=== PATIENT | female | born 1960 | race Caucasian/White ===

== ENCOUNTER → 2019-05-23 17:37 | Outpatient (CLI) | payer OTHER, SELFPAY ==
--- NOTE | ~2019-05-23 | MM_ITS ---
EXAMINATION: MM screening mary BI w ellen HISTORY: Screening mammogram, history of right breast cancer TECHNIQUE: Craniocaudal and mediolateral oblique 3-D tomosynthesis images were obtained and synthetic 2-D images were generated. CAD analysis was submitted and interpreted. COMPARISON: 09/04/2011, 03/11/2011, 03/06/2011, 02/20/2010 BREAST PARENCHYMAL COMPOSITION: The breasts are heterogeneously dense, which may obscure small masses . FINDINGS: There is architectural distortion in the middle third of the upper right breast at the site of prior lumpectomy. Surgical clips are also noted in the right axilla. There is no evidence of susp icious mass, calcification, or architectural distortion to suggest malignancy in either breast. There has been no suspicious interval change. IMPRESSION: 1. No mammographic evidence of malignancy. 2. Recommend routine screening mammography in one year. BI-RADS Category 2: Benign finding(s). Reviewed, dictated and finalized at location A. CTOR OF LABORATORY OPERATIONS
== END ==
PROVIDERS: PCP Family Medicine; Visit Provider Obstetrics & Gynecology
DX: Z12.31 Encounter for screening mammogram for malignant neoplasm of breast (principal)
CPT/HCPCS: 77063; 77067

== ENCOUNTER 2020-07-24 07:42 | Outpatient (CLI) | payer OTHER, SELFPAY ==
--- NOTE | ~2020-07-24 | MM_ITS ---
EXAMINATION: MM screening [facility] BI w ellen HISTORY: Screening mammogram TECHNIQUE: Craniocaudal and mediolateral oblique 3-D tomosynthesis images were obtained and synthetic 2-D images were generated. CAD analysis was submitted and interpreted. COMPARISON: 05/23/2019, 04/26/2018, 04/16/2017 BREAST PARENCHYMAL COMPOSITION: The breasts are heterogeneously dense, which may obscure small masses . FINDINGS: There is stable architectural distortion in the upper right breast related to prior lumpect nora. Clips are also noted in the right axilla. There is no evidence of suspicious mass, calcification , or architectural distortion to suggest malignancy in either breast. There has been no suspicious in terval change. IMPRESSION: 1. No mammographic evidence of malignancy. 2. Recommend routine screening mammography in one year. BI-RADS Category 2: Benign finding(s). Reviewed, dictated and finalized at location A.
== END 2020-07-24 07:43 | disposition home or self-care (01) ==
LOC: ANHIMG 07:47
PROVIDERS: PCP Family Medicine; Visit Provider Obstetrics & Gynecology
DX: Z12.31 Encounter for screening mammogram for malignant neoplasm of breast (principal)
CPT/HCPCS: 77063; 77067

== ENCOUNTER 2021-08-08 08:16 | Outpatient (CLI) | payer OTHER, SELFPAY ==
--- NOTE | ~2021-08-08 | MM_ITS ---
EXAMINATION: MM screening mary BI w ellen HISTORY: Screening mammogram TECHNIQUE: Craniocaudal and mediolateral oblique 3-D tomosynthesis images were obtained and synthetic 2-D images were generated. CAD analysis was submitted and interpreted. COMPARISON: 07/24/2020, 05/23/2019, 04/26/2018, 04/16/2017 bilateral screening mammogram examinations BREAST PARENCHYMAL COMPOSITION: The breasts are heterogeneously dense, which may obscure small masses . FINDINGS: There is stable architectural distortion in the upper mid right breast and multiple surgica l clips in the right axilla consistent postoperative change from partial mastectomy and axillary node dissection for history of right breast cancer. There is no evidence of suspicious mass, calcification, or interval architectural distortion to sugge st malignancy in either breast. There has been no suspicious interval change. IMPRESSION: 1. Status post right partial mastectomy and axillary node dissection. Stable right architectural dist ortion since 04/16/2017; no interval mammographic evidence of malignancy. 2. Recommend routine screening mammography in one year. BI-RADS Category 2: Benign finding(s). Reviewed, dictated and finalized at location A. IMPRESSION: 1. Status post right partial mastectomy and axillary node dissection. Stable ri ght architectural distortion since 04/16/2017; no interval mammographic evidence of malignancy. 2. Recommend routine screening mammography in one year. BI-RADS Category 2: Benign finding(s).
== END 2021-08-08 08:17 | disposition home or self-care (01) ==
PROVIDERS: PCP Family Medicine; Visit Provider Obstetrics & Gynecology
DX: Z12.31 Encounter for screening mammogram for malignant neoplasm of breast (principal)
CPT/HCPCS: 77063; 77067

== ENCOUNTER 2022-07-22 23:09 | Emergency (ER) | payer OTHER, SELFPAY ==
--- NOTE | ~2022-07-22 | XR_ITS ---
Clinical Indication: Back pain radiating to chest PA and lateral views of the chest: Comparison: 05/26/2005 Findings: The lungs are clear, without evidence of focal consolidation or pleural effusion. Cardiome diastinal silhouette is within normal limits. Bones and soft tissues are unremarkable. Impression: Normal chest. Reviewed, dictated and finalized at location . Impression: Normal chest.
--- NOTE | ~2022-07-22 | CT_ITS ---
Clinical Indication: Dissection CT Scan of the Chest, Abdomen, and Pelvis with Contrast: Technique: Contiguous sections were acquired throughout the chest, abdomen, and pelvis after intraven ous administration of 100 cc of Omnipaque 350. Dose reduction technique was used on this scan by keiko goodmaning automated exposure control and iterative reconstruction technique. The dose-length product (DL P) was 930.00 mGy-cm. COMPARISON: 09/17/2012 Findings: There is no evidence of any significant mediastinal, hilar or axillary lymphadenopathy. Ascending aor ta is mildly dilated to 4.4 cm. No dissection seen in the thoracic aorta. No pulmonary embolus. There is no evidence of pleural or pericardial effusion. The lungs are clear. No pulmonary nodules or infiltrates are noted. The liver, spleen, pancreas, gallbladder, adrenals and kidneys are within normal limits. No evidence of abdominal aortic aneurysm or dissection. No lymphadenopathy. No bowel obstruction or bowel wall thickening. There is no evidence to suggest acute appendicitis. Urinary bladder is unremarkable. No adnexal mass evident. No ascites. Impression: Ascending aortic aneurysm measures 4.4 cm in diameter. No aortic dissection. No other significant findings. Reviewed, dictated and finalized at [facility]. Impression: Ascending aortic aneurysm measures 4.4 cm in diameter. No aortic dissection. No other significant findings.
--- NOTE | 2022-07-23 | ECG_ITS ---
Measurements Intervals [place] Rate: 60 P: 20 [place]: 191 QRS: 11 QRSD: 103 T: 71 QT: 438 QTc: 438 Interpretive Statements SINUS RHYTHM NONSPECIFIC ST & T-WAVE ABNORMALITY NO PREVIOUS ECG AVAILABLE FOR COMPARISON Electronically Signed On 07-23-2022 15:44:23 CDT by Emma Lewis M.D.
[2022-07-23 00:05] VITALS: BP 157/96; PULSE 63; RESP 15; TEMP 36.9; O2SAT 94
--- NOTE | 2022-07-23 00:56 | ED.GENADULT ---
HPI - General Adult General Chief complaint: Back Pain/Injury Stated complaint: back pressure Time Seen by Provider: 07/23/22 00:28 History of Present Illness HPI narrative: 61-year-old female history of hypertension, GERD, presented with chest pain, back pain. Per patient approximately 5 hours prior to presentation she was eating when she began feeling right-sided chest pain, also involving her back, rating to the right neck. This did not feel like her acid reflux, so presents to the ED for further evaluation. By time of ED presentation, patient reports all symptoms resolved. She denies shortness of breath, abdominal pain, dysuria, hematuria, sick contacts, diarrhea. Past medical history: Hypertension, GERD Past surgical history: Denied Medications: Denied Allergies: No known drug allergies Social: Denied smoking, IV drugs, recreational drugs Related Data Home Medications Medication Instructions Recorded Confirmed cholecalciferol (vitamin D3) 25 25 mcg PO DAILY 08/21/21 03/18/22 mcg (1,000 unit) capsule evening primrose oil-linoleic 1 cap PO BID 08/21/21 03/18/22 acid-gamolenic acid 1,000 mg capsule omega 3,6,9 combination no.7 92 mg mg PO 08/21/21 03/18/22 (43 mg-22 [id number]) chew tablet Allergies Allergy/AdvReac Type Severity Reaction Status Date / Time No Known Allergies Allergy Mild Verified 07/23/22 02:30 Review of Systems Review of Systems: See HPI [facility] Past Medical History Medical History Diarrhea Dyslipidemia Environmental allergies Essential (primary) hypertension Family history of colon cancer in mother GERD without esophagitis History of mitral valve prolapse History of right breast cancer Inflammatory arthritis Obese JACK (obstructive sleep apnea) Surgical History Surgical History History of lumpectomy of right breast 2013 Family History Family History Other Carcinoma of colon Family history of coronary artery disease Social History Social History Smoking status: Never smoker Alcohol intake: current Alcohol use details: occasionally Substance use: never Substance use type: does not use Lack of Transportation: No Lack of Food: Never True Current Housing: I Have Housing Concerned About Future Housing: No Difficulty Paying Gas/Electric Bills: No Difficulty Paying for Meds: No Currently Unemployed: No Education: Decline to Answer Difficulty w/ Childcare or Family Care: No Living arrangements: with family Additional living arrangements comments: Occupation/Education: occupation Gender identity (if verbalized by the patient): Female Sexual Orientation (if Verbalized by the Patient): Straight or Heterosexual Agree to blood products: Yes Exam Narrative: APPEARANCE: Alert, calm and cooperative, no acute distress, phonating, sitting comfortably during visit HEAD: atraumatic EYES: Pupils equal round an reactive to light, extra ocular movements intact, no conjunctival injection NOSE: Normal no drainage NECK: Supple, without meningismus RESPIRATORY: Lungs clear to auscultation bilaterally, no wheezes/rales/rhonchi, breathing comfortably CARDIOVASCULAR: Regular rate and rhythm, no visible jugular venous distension ABDOMINAL: Soft, nontender, nondistended, no guarding, no rebound/peritoneal signs, no costovertebral tenderness to palpation BACK: no midline tenderness to palpation, no step offs EXTREMITIES: No edema, palpable peripheral pulses, warm, well perfused, no tenderness to bilateral calves. NEURO: Alert, moving all extremities symmetrically, normal finger nose finger, 5/5 strength throughtout SKIN:: Warm, dry. Normal color PSYCHIATRIC: Normal affect/mood Course Vital Signs Vital signs: Vital Signs
[2022-07-23 01:18] LABS: Basophils Absolute Auto 0.1 K/mm3 (0.0-0.1); Basophils Percent Auto 0.9 % (0.2-1.2); Eosinophils Absolute Auto 0.5 K/mm3 (0-0.3); Eosinophils Percent Auto 8.6 % (0-4.4); Hematocrit 39.4 % (37.0-47.0); Hemoglobin 13.6 g/dL (12.0-15.0); Immature Granulocyte Absolute 0.01 K/mm3 (0.00-0.031); Immature Granulocyte Percent A 0.2 % (0-0.5); Lymphocytes Absolute Auto 1.63 K/mm3 (0.9-3.2); Lymphocytes Percent Auto 29.7 % (18.3-44.2); Mean Corpuscular HGB Conc 34.5 g/dl (32-36); Mean Corpuscular Hemoglobin 31.1 pg (26-34); Mean Corpuscular Volume 90.2 fl (80-100); Mean Platelet Volume 8.9 fl (7.4-10.4); Monocytes Absolute Auto 0.5 K/mm3 (0.1-0.6); Monocytes Percent Auto 9.3 % (2.6-8.5); Neutrophils Absolute Auto 2.8 K/mm3 (1.3-6.7); Neutrophils Percent Auto 51.3 % (45.5-73.1); Platelet Count Result 233 k/mm3 (150-375); Red Blood Count 4.37 M/mm3 (4.2-5.4); Red Cell Distribution Width 12.3 % (11.5-14.5); White Blood Count 5.5 K/mm3 (4.5-10.0)
[2022-07-23 01:27] LABS: Prothrombin Time 12.4 Seconds (11.1-14.7)
[2022-07-23 01:28] LABS: Partial Thromboplastin Time 26.5 SECONDS (22.3-36.8)
[2022-07-23] MEDS: MAG HYDROX/AL HYDROX/SIMETH 30 ML UDC PO (01:29)
[2022-07-23] MEDS: FAMOTIDINE 20 MG/2 ML VIAL IV PUSH (01:29)
[2022-07-23 01:33] LABS: Alanine Aminotransferase 27 U/L (6-35); Albumin Level 4.4 g/dL (3.5-5.1); Alkaline Phosphatase 61 U/L (38-126); Anion Gap 3 mmol/L (8-16); Aspartate Amino Transferase 33 U/L (14-36); Bilirubin,Total 0.5 mg/dL (0.2-1.3); Blood Urea Nitrogen 13 mg/dL (7-17); Calcium 9.2 mg/dL (8.4-10.2); Carbon Dioxide 33 mmol/L (22-30); Chloride 99 mmol/L (98-107); Estimated CRCL calculation 86 ml/min; Estimated Glomerular Filt Rate > 60; Glucose 93 mg/dL (65-110); Lipase 128 U/L (23-300); Potassium 3.7 mmol/L (3.4-5.0); Sodium 135 mmol/L (137-145)
[2022-07-23 01:41] LABS: Troponin I < 0.012 ng/mL (0.000-0.034)
[2022-07-23 02:23] VITALS: BP 133/72; PULSE 61; RESP 14; O2SAT 95
[2022-07-23 03:51] VITALS: BP 146/92; PULSE 63; RESP 15; O2SAT 96
[2022-07-23 03:55] LABS: Lipase 121 U/L (23-300)
[2022-07-23 04:08] LABS: Troponin I < 0.012 ng/mL (0.000-0.034)
== END 2022-07-23 03:53 | disposition home or self-care (01) ==
PROVIDERS: Emergency Provider Emergency Medicine; PCP Family Medicine
DX: R07.9 Chest pain, unspecified (principal); I10 Essential (primary) hypertension; E78.5 Hyperlipidemia, unspecified; I34.1 Nonrheumatic mitral (valve) prolapse; G47.33 Obstructive sleep apnea (adult) (pediatric); K21.9 Gastro-esophageal reflux disease without esophagitis; E66.9 Obesity, unspecified; Z68.31 Body mass index [BMI] 31.0-31.9, adult; Z85.3 Personal history of malignant neoplasm of breast; R94.31 Abnormal electrocardiogram [ECG] [EKG]
CPT/HCPCS: 36415; 71046; 71275; 74174; 80053; 83690; 84484; 85025; 85610; 85730; 93005; 96374; 99284; A9270; Q9967

== ENCOUNTER 2022-08-12 09:36 | Outpatient (CLI) | payer OTHER, SELFPAY ==
--- NOTE | ~2022-08-12 | NM_ITS ---
EXAMINATION: NM hepatobiliary wo pharm DATE: 08/12/2022 14:20 CDT INDICATION: Right upper quadrant pain COMPARISON: CT dated 07/23/2022. TECHNIQUE: 4.9 mCi Tc-99m mebrofenin (Choletec) was administered intravenously. Scintigraphic images of the abdomen were obtained for one hour. At the 1 hour time point, the patient drank 8 oz Ensure, and imaging was continued for 60 minutes. Gallbladder ejection fraction was calculated by the technol ogist. FINDINGS: There is normal clearance of radiotracer from the blood pool. There is homogeneous tracer u ptake by the liver. Activity progresses to the bowel and gallbladder. The gallbladder ejection fract ion is 86%. Note that with this technique, normal GBEF >= 33%. IMPRESSION: 1. Normal hepatobiliary scan. Reviewed, dictated and finalized at location L.
== END 2022-08-12 09:37 | disposition home or self-care (01) ==
PROVIDERS: PCP Family Medicine; Visit Provider Nurse Practitioner Family
DX: R10.11 Right upper quadrant pain (principal)
CPT/HCPCS: 78226; A9537

== ENCOUNTER 2022-08-13 08:04 | Outpatient (CLI) | payer OTHER, SELFPAY ==
--- NOTE | ~2022-08-13 | US_ITS ---
Limited Abdominal Sonogram: Real-time sonographic imaging of the right upper quadrant was performed. Clinical History: Right upper quadrant pain Findings: The liver appears normal with no evidence of mass lesion or bile duct dilatation. Main por dina vein demonstrates normal direction of flow. The gallbladder is well distended, without evidence o f gallstone. Probable 4 mm gallbladder wall polyp. The common bile duct measures 4 mm. The visualize d pancreas, aorta, and IVC are unremarkable. Impression: 4 mm gallbladder wall polyp. Reviewed, dictated and finalized at location M. Impression: 4 mm gallbladder wall polyp.
== END 2022-08-13 08:05 | disposition home or self-care (01) ==
PROVIDERS: PCP Family Medicine; Visit Provider Nurse Practitioner Family
DX: R10.11 Right upper quadrant pain (principal); K82.4 Cholesterolosis of gallbladder
CPT/HCPCS: 76705

== ENCOUNTER → 2023-01-21 14:01 | Outpatient (CLI) | payer OTHER, SELFPAY ==
--- NOTE | ~2023-01-21 | MM_ITS ---
EXAMINATION: MM screening mary BI w ellen HISTORY: Screening TECHNIQUE: Craniocaudal and mediolateral oblique 3-D tomosynthesis images were obtained and synthetic 2-D images were generated. CAD analysis was submitted and interpreted. COMPARISON: Comparison to multiple prior studies sequentially, with oldest reviewed study dated 04/15. BREAST PARENCHYMAL COMPOSITION: The breasts are heterogeneously dense, which may obscure small masses . FINDINGS: Stable architectural distortion of the right breast consistent with previous lumpectomy sit e. There is no evidence of suspicious mass, calcification, or architectural distortion to suggest mal ignancy in either breast. There has been no suspicious interval change. IMPRESSION: 1. No mammographic evidence of malignancy. 2. Recommend routine screening mammography in one year. BI-RADS Category 1: Negative Reviewed, dictated and finalized at location A.
== END ==
PROVIDERS: PCP Internal Medicine Medical Oncology; Visit Provider Obstetrics & Gynecology
DX: Z12.31 Encounter for screening mammogram for malignant neoplasm of breast (principal)
CPT/HCPCS: 77063; 77067

== ENCOUNTER 2023-05-29 08:09 | Outpatient (CLI) | payer OTHER, SELFPAY ==
--- NOTE | ~2023-05-29 | US_ITS ---
EXAMINATION: US abdomen limited DATE: 05/29/2023 08:43 INDICATION: Cholesterolosis of the gallbladder TECHNIQUE: Multiple grayscale and Doppler ultrasound images of the abdomen were obtained. COMPARISON: 08/13/2022 FINDINGS: The head and body of the pancreas are normal. The pancreatic tail is obscured by bowel gas. The liver is normal with normal echogenicity and echotexture. No surface nodularity. Normal hepatope dina flow in the main portal vein. There is a stable 4 mm polyp of the gallbladder. No gallstones are identified. The dilated common bile duct measures 7 mm. There was no sonographic Iglesias sign. IMPRESSION: 1. Stable 4 mm gallbladder polyp. 2. Dilated common bile duct of unclear etiology. Recommend correlation with liver function tests. Reviewed, dictated and finalized at location B. R INSTALLER TECHNICIAN IMPRESSION: 1. Stable 4 mm gallbladder polyp. 2. Dilated common bile duct of unclear etiology. Recommend correlation with becky er function tests.
== END 2023-05-29 08:10 | disposition home or self-care (01) ==
PROVIDERS: PCP Family Medicine; Visit Provider Nurse Practitioner Family
DX: K82.4 Cholesterolosis of gallbladder (principal)
CPT/HCPCS: 76705

== ENCOUNTER 2023-07-25 07:48 | Outpatient (CLI) | payer OTHER, SELFPAY ==
--- NOTE | ~2023-07-25 | DEXA_ITS ---
Bone Density Report Name: KANE CHAUHAN Age: 62 Sex: Female Ethnicity: White Date of : 1960 Indication: postmenopausal; screening for osteoporosis; cancer; Referring Provider: SCOTT, HUMERA [place] Study: Bone densitometry was performed. Exam Date: July 25, 2023 Accession number: [id number] Bone Density: Region BMD T-score Z-score Classification AP Spine(L1-L4) 0.846 -1.8 -0.4 Osteopenia Femoral Neck (Left) 0.780 -0.6 0.7 Normal Total Hip (Left) 0.998 0.5 1.4 Normal Femoral Neck (Right) 0.845 0.0 1.3 Normal Total Hip (Right) 0.959 0.1 1.1 Normal Total Hip Mean 0.979 0.3 1.3 Normal World Health Organization criteria for BMD impression classify patients as: Normal (T-score at or above -1.0), Osteopenia (T-score between -1.0 and -2.5), or Osteoporosis (T-score at or below -2.5). 10-year Fracture Risk(1): Major Osteoporotic Fracture 6.5% Hip Fracture 0.2% Reported Risk Factors: [place] (), Neck BMD=0.780, BMI=31.9 (1) FRAX(R) Version 3.08. Fracture probability calculated for an untreated patient. Fracture probability may be lower if the patient has received treatment. Clinical Information Provided by Patient: Has used the following medications: Vitamin D Has the following medical conditions: Cancer Patient maximum height was 63.5 Menopause Age: 56 Drinks caffeinated beverages Onset of menses at age 16 Number of children 3 Impression: The patient has low bone mass, based on the Total Spine T-score. The patient has an estimated ten-year risk of hip fracture of 0.2% and an estimated ten-year risk of major fracture of 6.5%, based on the WHO FRAX algorithm. Discussion: BONE DENSITY IS LOW AT ONE OR MORE SKELETAL SITES. This patient's lowest T-score is low at one or more skeletal sites. It meets the World Health Organization's (WHO) criteria for ?low bone mass? (T-score between -1.0 and -2.5). The patient's 10-year risk of fracture as calculated by FRAX is less than the threshold where pharmacological therapy is recommended by the National Osteoporosis Foundation (NOF). However, all treatment decisions require clinical judgment and consideration of individual patient factors, including patient preferences, comorbidities, previous drug use, risk factors not captured in the FRAX model (e.g., frailty, falls, vitamin D deficiency, increased bone turnover, interval significant decline in bone density) and possible under or overestimation of fracture risk by FRAX. The patient should follow a healthful lifestyle (good nutrition with adequate calcium and vitamin D, and appropriate weight-bearing exercise). Follow-Up: Consider repeating this study in 2 to 3 years to reassess this patient's status, or sooner if there is some new clinical indication. Reported by: VANITA on 07/25/2023 8:13:00 AM. Reviewed, dictated and finalized at location A. BONNY
== END 2023-07-25 07:49 | disposition home or self-care (01) ==
LOC: ANHIMG 07:51
PROVIDERS: PCP Family Medicine; Visit Provider Obstetrics & Gynecology
DX: Z78.0 Asymptomatic menopausal state (principal); M85.88 Other specified disorders of bone density and structure, other site
CPT/HCPCS: 77080

== ENCOUNTER 2023-12-01 12:23 | Outpatient (CLI) | payer OTHER, SELFPAY ==
--- NOTE | ~2023-12-01 | XR_ITS ---
EXAMINATION: XR hand LT 2V DATE: 12/01/2023 12:41 INDICATION: Multiple joint pain. TECHNIQUE: 2 views of left hand were obtained. COMPARISON: None. FINDINGS: Bone alignment is normal. No fracture. There is mild osteoarthritis of first carpometacarpa l joint, fourth and fifth metacarpophalangeal joints, and some of the interphalangeal joints. There i s severe osteoarthritis of second distal interphalangeal joint and moderate osteoarthritis of fourth distal interphalangeal joint. IMPRESSION: 1. Polyarticular osteoarthritis. Reviewed, dictated and finalized at location A.
--- NOTE | ~2023-12-01 | XR_ITS ---
Right Hand Technique: PA and lateral views were obtained. Clinical History: Joint pain Findings: No acute fracture or dislocation is seen. Osseous alignment is anatomic. There is mild dege nerative change of the DIP joints. Soft tissues are unremarkable. Impression: Mild degenerative changes of the DIP joints. Reviewed, dictated and finalized at location . Impression: Mild degenerative changes of the DIP joints.
== END 2023-12-01 12:24 | disposition home or self-care (01) ==
LOC: CHSIMG 12:28
PROVIDERS: PCP Family Medicine
DX: M25.50 Pain in unspecified joint (principal); M19.042 Primary osteoarthritis, left hand; M19.041 Primary osteoarthritis, right hand
CPT/HCPCS: 73120

== ENCOUNTER 2024-01-26 14:59 | Outpatient (CLI) | payer OTHER, SELFPAY ==
--- NOTE | ~2024-01-26 | MM_ITS ---
EXAMINATION: MM screening mary BI w ellen HISTORY: Screening TECHNIQUE: Craniocaudal and mediolateral oblique 3-D tomosynthesis images were obtained and synthetic 2-D images were generated. CAD analysis was submitted and interpreted. COMPARISON: Comparison to multiple prior studies sequentially, with oldest reviewed study dated 04/16. BREAST PARENCHYMAL COMPOSITION: Not dense: There are scattered areas of fibroglandular density. FINDINGS: There is stable bilateral architectural distortion. There is no evidence of suspicious mass , calcification, or architectural distortion to suggest malignancy in either breast. There has been n o suspicious interval change. IMPRESSION: 1. No mammographic evidence of malignancy. 2. Recommend routine screening mammography in one year. BI-RADS CATEGORY 2 - BENIGN FINDINGS Reviewed, dictated and finalized at location B.
== END 2024-01-26 15:00 | disposition home or self-care (01) ==
LOC: ANHIMG 15:00
PROVIDERS: PCP Family Medicine; Visit Provider Obstetrics & Gynecology
DX: Z12.31 Encounter for screening mammogram for malignant neoplasm of breast (principal)
CPT/HCPCS: 77063; 77067